=== PATIENT | male | born 1995 | race Caucasian/White ===

== ENCOUNTER 2016-08-22 18:56 | Emergency (ER) | payer BC ==
[~2016-08-22] VITALS: Ht 182.9 cm; Wt 72.7 kg
[~2016-08-22 18:56] MED LIST: NO HOME MEDICATIONS; NORCO 325 MG-51 TAB PO
[2016-08-22 18:59] VITALS: BP 109/72; PULSE 76; TEMP 98.3
== END 2016-08-22 20:00 | disposition home or self-care (01) ==
LOC: COL.ER 18:56
DX: S00.411A Abrasion of right ear, initial encounter (principal); W54.1XXA Struck by dog, initial encounter; Z23 Encounter for immunization

== ENCOUNTER 2017-02-12 10:35 | Emergency (ER) | payer BC ==
[~2017-02-12] VITALS: Ht 182.9 cm; Wt 70.5 kg
[2017-02-12 10:47] VITALS: BP 113/68; TEMP 97.9
[2017-02-12] MEDS ORDERED: PRILOSEC10 MG PO (11:44)
[2017-02-12 12:08] LABS: BASO # 0.1 (0.0-0.2); BASO % 0.7 % (0.0-2.0); EOS # 0.1 (0.0-0.7); GRAN # 4.7 (1.4-6.5); HEMATOCRIT 45.6 % (42.0-52.0); HEMOGLOBIN 16.2 g/dl (13.5-18.0); LYMPH # 1.7 (1.2-3.4); MEAN CELL VOLUME 95 fl (80.0-100.0); MEAN CORPUSCULAR HEMOGLOBIN 34 pg (27.0-31.0); MEAN CORPUSCULAR HGB CONC 36 g/dl (33.0-37.0); MEAN PLATELET VOLUME 10.9 fl (7.4-10.4); MONO # 0.6 (0.1-0.6); MONO % 7.9 % (1.7-9.3); PLATELET COUNT 203 K/mm3 (130-400); RED BLOOD COUNT 4.81 M/mm3 (4.20-5.60); WHITE BLOOD COUNT 7.1 K/mm3 (4.8-10.8)
[2017-02-12 12:20] LABS: ALANINE AMINOTRANSFERASE 37 U/L (21-72); ALBUMIN 4.6 gm/dL (3.5-5.0); ALKALINE PHOSPHATASE 81 U/L (50-136); ANION GAP 11 mmol/L (7-16); BILIRUBIN,TOTAL 1.5 mg/dL (0.0-1.0); BLOOD UREA NITROGEN 16 mg/dL (9-20); CALCIUM 9.5 mg/dL (8.4-10.2); CARBON DIOXIDE 24 mmol/L (22-30); CHLORIDE 103 mmol/L (98-107); CREATININE, serum 0.79 mg/dL (0.66-1.25); GLUCOSE 78 mg/dL (74-106); POTASSIUM 3.7 mmol/L (3.4-5.0); SODIUM 138 mmol/L (137-145); TOTAL PROTEIN 7.2 gm/dL (6.4-8.2)
[2017-02-12 12:21] LABS: PH 7 (5-8); SQUAMOUS EPITHELIAL None Seen /hpf; URINE APPEARANCE Hazy; URINE BACTERIA None Seen /hpf; URINE BILIRUBIN Negative (NEGATIVE); URINE BLOOD Negative (NEGATIVE); URINE COLOR Yellow; URINE GLUCOSE Negative (NEGATIVE); URINE KETONE 1+ (NEGATIVE); URINE RBC 0-2 /hpf; URINE UROBILINOGEN Negative (NEGATIVE); URINE WBC 0-2 /hpf
[2017-02-12 12:26] LABS: C-REACTIVE PROTEIN < 0.5 mg/dL (0.0-0.9)
[2017-02-12 12:57] VITALS: PULSE 56
== END 2017-02-12 13:05 | disposition home or self-care (01) ==
LOC: COL.ER 10:35
PROVIDERS: Physician Assistant
DX: R10.31 Right lower quadrant pain (principal); F17.210 Nicotine dependence, cigarettes, uncomplicated
CPT/HCPCS: J1885; J2405; J7030

== ENCOUNTER → 2017-02-25 | Outpatient (CLI) | payer BC ==
[~2017-02-25] MED LIST changes: +PRILOSEC10 MG PO
== END ==
LOC: COL.RAD 09:41
DX: R10.11 Right upper quadrant pain (principal)

== ENCOUNTER 2018-01-06 20:10 | Emergency (ER) | payer BC ==
[~2018-01-06] VITALS: Ht 182.9 cm; Wt 68.2 kg
[2018-01-06 20:17] VITALS: BP 111/65; PULSE 84; TEMP 98
[2018-01-06] MEDS ORDERED: NORCO 325 MG-51 TAB PO (21:34)
== END 2018-01-06 21:53 | disposition home or self-care (01) ==
LOC: COL.ER 20:10
DX: S02.40EA Zygomatic fracture, right side, initial encounter for closed fracture (principal); F17.210 Nicotine dependence, cigarettes, uncomplicated; Y04.8XXA Assault by other bodily force, initial encounter

== ENCOUNTER 2022-10-18 14:21 | Emergency (ER) | payer BC ==
[~2022-10-18] VITALS: Ht 188 cm; Wt 90.9 kg
[2022-10-18 15:00] LABS: BASO # 0.1 K/mm3 (0.0-0.2); BASO % 0.7 % (0.0-2.0); EOS # 0.1 K/mm3 (0.0-0.7); EOS % 0.6 % (0.0-4.0); GRAN % 83.1 % (42.2-75.2); HEMATOCRIT 49.5 % (42.0-52.0); HEMOGLOBIN 17.5 g/dl (13.5-18.0); LYMPH # 1.1 K/mm3 (1.2-3.4); LYMPH % 9.9 % (20.0-51.0); MEAN CELL VOLUME 92 fl (80.0-100.0); MEAN CORPUSCULAR HEMOGLOBIN 33 pg (27-31); MEAN CORPUSCULAR HGB CONC 35 g/dl (33.0-37.0); MEAN PLATELET VOLUME 10.1 fl (7.4-10.4); MONO # 0.6 K/mm3 (0.1-0.6); MONO % 5.3 % (1.7-9.3); PLATELET COUNT 334 K/mm3 (130-400); RED BLOOD COUNT 5.36 M/mm3 (4.20-5.60); REDCELL DISTRIBUTION WIDTH-CV 15.5 % (11.5-14.5)
[2022-10-18 15:08] LABS: INR 1.2 (0.8-3.0)
[2022-10-18 15:11] LABS: PARTIAL THROMBOPLASTIN TIME 24.9 SECONDS (26.0-37.0)
[2022-10-18 15:46] LABS: ALANINE AMINOTRANSFERASE 45 U/L (0-55); ALBUMIN 3.4 gm/dL (3.5-5.0); ALKALINE PHOSPHATASE 72 U/L (40-150); ANION GAP 10 mmol/L (7-16); AST,SGOT 36 U/L (5-34); BILIRUBIN,TOTAL 0.8 mg/dL (0.2-1.2); BLOOD UREA NITROGEN 11 mg/dL (9-21); CALCIUM 8.9 mg/dL (8.4-10.2); CARBON DIOXIDE 19 mmol/L (22-29); CHLORIDE 108 mmol/L (98-107); CREATININE, serum 1.16 mg/dL (0.72-1.25); GLUCOSE 145 mg/dL (70-99); POTASSIUM 3.9 mmol/L (3.5-4.5); SODIUM 137 mmol/L (136-145); TOTAL PROTEIN 6.7 gm/dL (6.2-8.1)
[2022-10-18 15:59] LABS: TROPONIN-I < 0.010 ng/mL (0.00-0.033)
[2022-10-18 18:50] VITALS: TEMP 98.2
[2022-10-18 19:00] VITALS: BP 131/90; PULSE 95
== END 2022-10-18 19:11 | disposition home or self-care (01) ==
LOC: COL.ER 14:21
PROVIDERS: Emergency Medicine
DX: R07.89 Other chest pain (principal); I51.7 Cardiomegaly; F17.200 Nicotine dependence, unspecified, uncomplicated; Z28.310 Unvaccinated for COVID-19

== ENCOUNTER 2022-10-20 10:34 | Emergency (ER) | payer BC ==
[~2022-10-20] VITALS: Ht 188 cm; Wt 90.9 kg
[2022-10-20 10:50] VITALS: TEMP 97.8
[2022-10-20 12:30] VITALS: BP 133/74; PULSE 90
[2022-10-20 15:17] LABS: C-REACTIVE PROTEIN 0.51 mg/dL (0.00-0.50); TROPONIN-I < 0.010 ng/mL (0.00-0.033)
[2022-10-20 15:32] LABS: BASO # 0.1 K/mm3 (0.0-0.2); BASO % 0.7 % (0.0-2.0); EOS # 0.1 K/mm3 (0.0-0.7); EOS % 0.4 % (0.0-4.0); GRAN # 11.5 K/mm3 (1.4-6.5); GRAN % 83.8 % (42.2-75.2); HEMATOCRIT 51.4 % (42.0-52.0); HEMOGLOBIN 17.3 g/dl (13.5-18.0); LYMPH # 1.1 K/mm3 (1.2-3.4); LYMPH % 7.6 % (20.0-51.0); MEAN CELL VOLUME 95 fl (80.0-100.0); MEAN CORPUSCULAR HEMOGLOBIN 32 pg (27-31); MEAN CORPUSCULAR HGB CONC 34 g/dl (33.0-37.0); MEAN PLATELET VOLUME 10.1 fl (7.4-10.4); MONO % 7.1 % (1.7-9.3); PLATELET COUNT 335 K/mm3 (130-400); RED BLOOD COUNT 5.41 M/mm3 (4.20-5.60); REDCELL DISTRIBUTION WIDTH-CV 15.6 % (11.5-14.5)
[2022-10-20 15:33] LABS: TRICYCLIC ANTIDEPRESS URINE NEGATIVE
[2022-10-20 16:05] LABS: ALANINE AMINOTRANSFERASE 48 U/L (0-55); ALBUMIN 3.7 gm/dL (3.5-5.0); ALKALINE PHOSPHATASE 68 U/L (40-150); ANION GAP 11 mmol/L (7-16); AST,SGOT 34 U/L (5-34); BLOOD UREA NITROGEN 11 mg/dL (9-21); CALCIUM 9.1 mg/dL (8.4-10.2); CARBON DIOXIDE 21 mmol/L (22-29); CHLORIDE 108 mmol/L (98-107); GLUCOSE 72 mg/dL (70-99); POTASSIUM 4.1 mmol/L (3.5-4.5); SODIUM 140 mmol/L (136-145); TOTAL PROTEIN 7.2 gm/dL (6.2-8.1)
== END 2022-10-20 12:35 | disposition home or self-care (01) ==
LOC: COL.ER 10:34
PROVIDERS: Personal Emergency Response Attendant
DX: R07.89 Other chest pain (principal); F14.10 Cocaine abuse, uncomplicated; F17.210 Nicotine dependence, cigarettes, uncomplicated; Z28.310 Unvaccinated for COVID-19